=== PATIENT | female | born 2000 | race Caucasian/White ===

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

== ENCOUNTER 2022-02-26 00:09 | Inpatient (IN) ==
[2022-02-26 01:31] LABS: ABS Basophils 0.1 10^3/ul (0-0.2); ABS Eosinophils 0.2 10^3/ul (0-0.6); ABS Lymphocytes 2.2 10^3/ul (1.0-4.8); ABS Monocytes 0.6 10^3/ul (0-0.8); ABS Neutrophils 4.9 10^3/ul (1.5-7.7); Eosinophil % 1.9 %; Hematocrit 37 % (35-47); Hemoglobin 12.8 g/dL (12.0-16.0); Mean Corpuscular HGB Conc 35 g/dL (31-36); Mean Corpuscular Hemoglobin 30 pg (27-31); Mean Corpuscular Volume 86 fL (80-97); Mean Platelet Volume 8.9 fL (7.4-10.4); Nucleated Red Blood Cells % 0.2; Platelet Count 201 10^3/uL (150-450); Red Blood Count 4.32 10^6 /uL (3.70-4.87); Red Cell Distribution Width 14 % (10-15)
[2022-02-26 01:45] LABS: Urine Benzodiazepine Screen None Detected (None Detect); Urine Cannabinoids Screen None Detected (None Detect); Urine Opiates Screen None Detected (None Detect)
[2022-02-26 01:48] LABS: ALT 11 U/L (7-52); AST 10 U/L (13-39); Acetaminophen < 15 mcg/mL; Albumin 3.5 g/dL (3.2-5.2); Albumin/Globulin Ratio 2.2 (1-3); Alcohol, S < 13 mg/dL (<13); Alkaline Phosphatase 53 U/L (35-149); Anion Gap 4 mmol/L (2-11); Blood Urea Nitrogen 12 mg/dL (6-24); CO2 Carbon Dioxide 25 mmol/L (22-32); Calcium 8.3 mg/dL (8.6-10.3); Chloride 110 mmol/L (101-111); Globulin 1.6 g/dL (2-4); Glucose 93 mg/dL (70-100); Potassium 3.8 mmol/L (3.5-5.0); Salicylate < 2.50 mg/dL (<30); Sodium 139 mmol/L (135-145); Total Protein 5.1 g/dL (6.4-8.9); eGFR CKD-EPI 95.1 (>60)
[2022-02-26 02:03] LABS: TSH Ultra Thyroid Stim Horm 7.59 mcIU/mL (0.34-5.60)
[2022-02-26] MEDS ORDERED: Al Hydrox/Mg Hydrox/Simet LIQ 30 ML UDC PO PRN (06:21)
[2022-02-26] MEDS: Vitamin THERAPEUTIC TAB PO SCH (10:17)
[2022-02-26 10:54] LABS: HCG Pregnancy < 0.60 mIU/mL
[2022-02-27] MEDS: Vitamin THERAPEUTIC TAB PO SCH (07:43)
[2022-02-27 08:24] LABS: HDL Cholesterol 35.6 mg/dL
[2022-02-28] MEDS: Vitamin THERAPEUTIC TAB PO SCH (08:27)
[2022-03-01] MEDS: Vitamin THERAPEUTIC TAB PO SCH (08:03)
[2022-03-02] MEDS: Vitamin THERAPEUTIC TAB PO SCH (07:51)
[2022-03-03] MEDS: Vitamin THERAPEUTIC TAB PO SCH (07:24)
[2022-03-04] MEDS: Vitamin THERAPEUTIC TAB PO SCH (07:25)
[2022-03-05 08:09] VITALS: BP 104/76
[2022-03-05] MEDS: Vitamin THERAPEUTIC TAB PO SCH (08:27)
== END 2022-03-05 13:40 | disposition home or self-care (01) | DRG 751 ==
LOC: ED 00:09 → BSU 06:12
PROVIDERS: ADMIT Psychiatry & Neurology Psychiatry; ATTEND Student in an Organized Health Care Education/Training Program

== ENCOUNTER 2022-08-06 15:18 | Inpatient (IN) ==
[2022-08-06 15:47] LABS: ABS Basophils 0.1 10^3/ul (0-0.2); ABS Eosinophils 0.1 10^3/ul (0-0.6); ABS Lymphocytes 2.1 10^3/ul (1.0-4.8); ABS Monocytes 0.5 10^3/ul (0-0.8); ABS Neutrophils 5.3 10^3/ul (1.5-7.7); Eosinophil % 1.2 %; Hematocrit 40 % (35-47); Hemoglobin 13.6 g/dL (12.0-16.0); Lymphocyte % 25.5 %; Mean Corpuscular HGB Conc 34 g/dL (31-36); Mean Corpuscular Hemoglobin 30 pg (27-31); Mean Corpuscular Volume 88 fL (80-97); Mean Platelet Volume 8.7 fL (7.4-10.4); Nucleated Red Blood Cells % 0.1; Platelet Count 214 10^3/uL (150-450); Red Blood Count 4.52 10^6 /uL (3.70-4.87); Red Cell Distribution Width 13 % (10-15); White Blood Count 8.1 10^3/uL (3.5-10.8)
[2022-08-06 16:13] LABS: HCG Pregnancy < 0.60 mIU/mL
[2022-08-06 16:21] LABS: TSH Ultra Thyroid Stim Horm 3.64 mcIU/mL (0.34-5.60)
[2022-08-06 16:24] LABS: ALT 11 U/L (7-52); AST 11 U/L (13-39); Acetaminophen < 15 mcg/mL; Albumin 3.5 g/dL (3.2-5.2); Albumin/Globulin Ratio 1.7 (1-3); Alcohol, S < 13 mg/dL (<13); Alkaline Phosphatase 61 U/L (35-149); Blood Urea Nitrogen 14 mg/dL (6-24); CO2 Carbon Dioxide 24 mmol/L (22-32); Calcium 8.3 mg/dL (8.6-10.3); Globulin 2.1 g/dL (2-4); Glucose 103 mg/dL (70-100); Salicylate < 2.50 mg/dL (<30); Sodium 141 mmol/L (135-145); Total Protein 5.6 g/dL (6.4-8.9); eGFR CKD-EPI 102.8 (>60)
[2022-08-06 16:25] LABS: Anion Gap 5 mmol/L (2-11); Chloride 112 mmol/L (101-111)
[2022-08-06 17:27] LABS: Urine Appearance Clear; Urine Bilirubin Negative (Negative); Urine Blood Negative (Negative); Urine Color Yellow; Urine Glucose Negative (Negative); Urine Ketones Negative (Negative); Urine Nitrite Negative (Negative); Urine Protein Negative (Negative); Urine Specific Gravity 1.029 (1.002-1.030); Urine Urobilinogen Negative (Negative)
[2022-08-06 17:39] LABS: Urine Benzodiazepine Screen None Detected (None Detect); Urine Cannabinoids Screen Presumptive Positive (None Detect); Urine Opiates Screen None Detected (None Detect)
[2022-08-07] MEDS ORDERED: Al Hydrox/Mg Hydrox/Simet LIQ 30 ML UDC PO PRN (03:12)
[2022-08-07 07:36] LABS: HDL Cholesterol 40.7 mg/dL
[2022-08-07] MEDS: Vitamin THERAPEUTIC TAB PO SCH (09:10)
[2022-08-08] MEDS: Vitamin THERAPEUTIC TAB PO SCH (09:02)
[2022-08-09] MEDS: Vitamin THERAPEUTIC TAB PO SCH (08:17)
[2022-08-10] MEDS: Vitamin THERAPEUTIC TAB PO SCH (08:55)
[2022-08-11] MEDS: Vitamin THERAPEUTIC TAB PO SCH (08:29)
[2022-08-12] MEDS: Vitamin THERAPEUTIC TAB PO SCH (08:50)
[2022-08-13] MEDS: Vitamin THERAPEUTIC TAB PO SCH (07:39)
[2022-08-13 08:46] VITALS: BP 138/66
== END 2022-08-13 11:43 | disposition home or self-care (01) | DRG 751 ==
LOC: ED 15:18 → EDHOLD 22:35 → BSU 08-07 02:24
PROVIDERS: ADMIT Psychiatry & Neurology Psychiatry; ATTEND Psychiatry & Neurology Psychiatry